=== PATIENT | female | born 1965 | race Two or more races ===

== ENCOUNTER 2020-08-13 13:55 | Emergency (ER) | payer MEDICAID ==
[~2020-08-13] VITALS: Ht 165.1 cm; Wt 81.8 kg
[2020-08-13 14:54] LABS: BASOPHILS % (AUTO) 0.7 % (0.0-2.0); EOSINOPHILS % (AUTO) 5.9 % (1.0-6.0); HEMATOCRIT 40.8 % (36-46); HEMOGLOBIN 13.9 g/dL (12.0-16.0); LYMPHOCYTES # (AUTO) 1.8 K/uL (1.0-4.8); LYMPHOCYTES % (AUTO) 29.1 % (22.0-44.0); MEAN CORPUSCULAR HEMOGLOBIN 32.1 pg (26.0-34.0); MEAN CORPUSCULAR HGB CONC 34.1 G/dL (31.0-37.0); MEAN CORPUSCULAR VOLUME 94 fL (80-100); MONOCYTES # (AUTO) 0.6 K/uL (0.1-1.0); MONOCYTES % (AUTO) 10.2 % (2.0-9.0); NEUTROPHILS # (AUTO) 3.3 K/uL (1.8-7.7); NEUTROPHILS % (AUTO) 54.1 % (40.0-70.0); PLATELET COUNT (AUTO) 259 K/uL (150-450); RED BLOOD CELL COUNT(AUTO) 4.33 MIL/uL (4.00-5.20); RED CELL DISTRIBUTION WIDTH 12.7 % (11.5-14.5)
[2020-08-13 15:04] LABS: ANION GAP 4 mmol/L (8-16); CALCIUM, TOTAL 8.8 mg/dL (8.8-10.5); CARBON DIOXIDE 32 mmol/L (22-29); CHLORIDE 104 mmol/L (98-107); CREATININE 0.65 mg/dL (0.60-1.30); GLOMERULAR FILTR. RATE CALC > 60 mL/min (>60); GLUCOSE,RANDOM 91 mg/dL (70-110); POTASSIUM 3.8 mmol/L (3.5-5.1); SODIUM SERUM 140 mmol/L (136-145); UREA NITROGEN, BLOOD 11 mg/dL (7-18)
[2020-08-13 15:09] LABS: ALANINE AMINOTRANSFERASE 49 U/L (12-78); ALBUMIN 3.6 g/dL (3.4-5.0); ALKALINE PHOSPHATASE 87 U/L (46-116); ASPARTATE AMINOTRANSFERASE 25 U/L (15-37); BILIRUBIN,TOTAL 0.4 mg/dL (0.1-1.0); LIPASE 122 U/L (73-393); TOTAL PROTEIN, SERUM 7.1 g/dL (6.4-8.2)
[2020-08-13] MEDS ORDERED: SODIUM CHLORIDE 0.9% 100 ML ONE (15:53)
[2020-08-13] MEDS ORDERED: IOVERSOL 350 MG/ML 100 ML VIAL ONE (15:53)
[2020-08-13] MEDS ORDERED: KETOROLAC TROMETHAMINE 30 MG/ML VIAL IVP ONE (16:00)
[2020-08-13] MEDS ORDERED: CYCLOBENZAPRINE HCL 10 MG TABLET PO ONE (16:00)
[2020-08-13 17:12] LABS: APPEARANCE,URINE CLOUDY (CLEAR); GLUCOSE, URINE (UA) NEGATIVE (NEGATIVE); KETONES,URINE NEGATIVE (NEGATIVE); LEUKOCYTE ESTERASE ,URINE SMALL (NEGATIVE); NITRATE,URINE NEGATIVE (NEGATIVE); OCCULT BLOOD,URINE NEGATIVE (NEGATIVE); PROTEIN,URINE NEGATIVE (NEGATIVE)
[2020-08-13 17:14] LABS: BILIRUBIN,URINE PRELIM. POSITIVE (NEGATIVE)
[2020-08-13 17:30] LABS: BACTERIA,URINE None Seen /HPF (None Seen); CALCIUM OXALATE CRYSTALS,UR Many /LPF (None Seen); RBC,URINE None Seen /HPF (0-2)
[2020-08-13 20:33] VITALS: BP 160/78
== END 2020-08-13 21:07 | disposition home or self-care (01) ==
LOC: EMS 13:57
DX: N83.8 Other noninflammatory disorders of ovary, fallopian tube and broad ligament (principal); R10.11 Right upper quadrant pain; Z90.49 Acquired absence of other specified parts of digestive tract
CPT/HCPCS: 36415; 74177; 76856; 80053; 81001; 83690; 84484; 85025; 93005; 96374; 99285; J1885; J7050; Q9967